=== PATIENT | male | born 1965 | race Caucasian/White ===

== ENCOUNTER 2024-05-22 20:03 | Emergency (ER) | payer BC, SELFPAY ==
[2024-05-22 20:11] VITALS: BP 156/97
--- NOTE | 2024-05-22 22:47 | ED.GENMED ---
History of Present Illness
General
Chief Complaint: Skin Surface Trauma
Exam Limitations: none
Time Seen by Provider: 05/22/24 21:56
Nursing documentation reviewed up to this point in time: agreed with
History of Present Illness
History of Present Illness:
Patient is a 59-year-old male who presents to the ER complaint of laceration to index ago. He was washing a glass and the glass broke. He does not feel that there was glass in the wound. He does have a laceration to his right index finger.
Tetanus updated. He is right-hand dominant. He denies any other injuries.
Review of Systems
Review of Systems
Allergies reviewed?: Yes
All Other Systems: ROS reviewed and negative except as documented in HPI and ROS
Constitutional: Reports no symptoms
Skin: Reports other (Laceration to right index finger)
Neurological: Denies numbness
Phy Exam
General Physical Exam
General Presentation: no apparent distress
General age: appears stated age
General Skin: warm and dry
General Mental: alert
General Hydration: appears well hydrated
Neurological Exam
Neurological Exam: alert and oriented x3
Musculoskeletal Exam
Musculoskeletal Exam: other (Right upper extremity index finger with a 2 .5 centimeter full-thickness laceration to dorsal aspect of index finger proximal phalanx no tendon deficit no tendon visualized able to flex and extend normal distal
sensation normal cap refill no swelling)
Skin Exam
Skin Exam: normal color and warm/dry
Psychiatric Exam
Psychiatric Exam: normal mood/affect
Course
Orders/Labs/Results
Orders:
Orders
05/22/24 21:54
Finger(s)/Thumb 2 View Rt [CR Finger(s)/thumb Min 2 Vw Rt] Urgent
Comment:
Reason For Exam: rule out fb laceration on glass
Indicate Which Finger:: Index Finger
Vital Signs
Initial and Last Documented VS:
Initial Vital Signs
Temp Pulse Resp BP Pulse Ox
98.4 F 77 18 156/97 95
05/22/24 20:11 05/22/24 20:11 05/22/24 20:11 05/22/24 20:11 05/22/24 20:11
Last Documented Vital Signs
Temp Pulse Resp BP Pulse Ox
98.4 F 77 18 156/97 95
05/22/24 20:11 05/22/24 20:11 05/22/24 20:11 05/22/24 20:11 05/22/24 20:11
Procedures
Laceration Closure
Right Dorsal Second Finger:
Status of Wound: clean
Size of Wound in cm: 2.5
Description of Wound Edges: sharp
Preparation: cleaned with saline
Anesthesia: 1% Lidocaine
Revision/Debridement: routine- no revision
Wound exploration: no tendon involvement
Type of Closure: single layer closure and interrupted sutures
Skin Closure Material: 5-0 nylon
Number of sutures: 5
MDM/Problems Addressed
Differential Diagnosis Includes:
Not limited to laceration less likely tendon injury
MDM/Problems Addressed:
Simple laceration repaired as documented no tendon deficit no foreign body on x-ray
*Critical Care Note
Total Time (30-74mins, 75-104mins- exclusive of procedures): Not Applicable
ED Attending Note
-
Portions of this chart may have been created with voice recognition software.� Occasional wrong word or��sound alike� substitutions may have occurred due to the inherent limitations of voice recognition software.
Discharge Plan
Departure
Patient Disposition: Home (Routine Discharge)
Date of Disposition: 05/22/24
Time of Disposition: 22:44
Patient with high blood pressure during this ER visit?: Yes
Condition: Fair
Covid-19: Not Applicable
Discharge Problem:
Finger laceration
Instructions: Wound Care (DC), Laceration Repair With Stitches (DC), BLOOD PRESSURE
Prescriptions:
No Action
cyanocobalamin (vitamin B-12) 1,000 MCG capsule
1,000 mcg PO DAILY
Referrals:
Vonda Best DO [Family Provider] -
Activity Restrictions/Additional Instructions:
Keep wound clean and dry for 24 hours after 24 hours wash with soap and water twice a day and apply small layer of antibiotic ointment to the area.
Wear finger splint for 24 hours for support. See family doctor as needed in the next 2 days for wound check and sutures are to be removed in 10 to 12 days. Return if any signs infection increased pain swelling redness drainage fever chills.
Interventions
Interventions:
*Risk Screen - Suicide Last Done: 05/22/24 20:14
*Neglect/Abuse Screening Last Done: 05/22/24 20:14
Discharge Date and Time
Print Language: MONTENEGRIN
[2024-05-22 23:05] VITALS: BP 145/85
== END 2024-05-22 23:06 | disposition home or self-care (01) ==
LOC: EMR 20:03
PROVIDERS: EMERGENCY PHYSICIAN Emergency Medicine; FAMILY PHYSICIAN Family Medicine
DX: S61.210A Laceration without foreign body of right index finger without damage to nail, initial encounter (principal); W25.XXXA Contact with sharp glass, initial encounter
CPT/HCPCS: 12001; 99283; 73140

== ENCOUNTER → 2024-06-05 06:23 | Day surgery (SDC) | payer BC, SELFPAY | LOC: GI 06:23 | PROVIDERS: ATTENDING PHYSICIAN Internal Medicine Gastroenterology | DX: Z12.11 Encounter for screening for malignant neoplasm of colon (principal); K63.5 Polyp of colon; K64.8 Other hemorrhoids; Z86.0100 Personal history of colon polyps, unspecified | CPT/HCPCS: 45380; 88305 ==